=== PATIENT | male | born 1995 | race Caucasian/White ===

== ENCOUNTER 2016-06-29 20:53 | Emergency (ER) | payer SELFPAY ==
[2016-06-29 21:43] LABS: % EOSINOPHILS 1.7 % (0.0-5.0); % LYMPHOCYTES 29.5 % (20.0-50.0); % NEUTROPHILS 63.8 % (40.0-80.0); HEMATOCRIT 47.2 % (39.0-49.0); HEMOGLOBIN 16.1 gm/dL (13.2-17.3); MEAN CELL VOLUME 85.6 fl (80-99); MEAN CORPUSCULAR HEMOGLOBIN 29.1 pg (26.0-30.0); MEAN PLATELET VOLUME 8.2 fl; NEUTROPHILE ABSOLUTE 5.4 Th/cmm (1.8-8.0); PLATELET COUNT 298 Th/cmm (150-400); RED BLOOD COUNT 5.51 Mil/cmm (4.30-5.70); RED CELL DISTRIBUTION WIDTH 12.5 % (11.5-20.0); WHITE BLOOD COUNT 8.4 Th/cmm (4.8-10.8)
[2016-06-29 21:49] LABS: INR 0.98 (0.5-1.4); PROTHROMBIN TIME (TEST) 9.7 SECONDS (9.5-11.5)
[2016-06-29 21:53] LABS: ALB/GLOB RATIO 1.5 (1.0-1.8); ALKALINE PHOSPHATASE 45 U/L (34-104); BILIRUBIN,TOTAL 0.3 mg/dL (0.3-1.0); BUN - UREA NITROGEN 10 mg/dL (7-25); CALCIUM SERUM 9.4 mg/dL (8.6-10.3); CARBON DIOXIDE 24.3 mEq/L (21.0-31.0); CHLORIDE 109 mEq/L (98-107); GLUCOSE 131 mg/dL (70-105); POTASSIUM SERUM 3.3 mEq/L (3.5-5.1); SGOT 25 U/L (13-39); SGPT/ALT 21 U/L (7-52); SODIUM SERUM 141 mEq/L (136-145)
--- NOTE | 2016-06-29 22:31 | ED Physician Chart ---
Chief Complaint/HPI - Patient Information Date Seen:: 06/29/16 Time Seen:: 21:06 Chief Complaint:: alcohol intoxication History of Present Illness:: THIS IS A 20 YO MALE BIB EMS STATING THAT HE WAS FOUND DOWN AND SMELLING LIKE ALCOHOL AND INCOHERENT. HE IS ORIENTED TO HIS NAME ONLY. Allergies:: Allergies Allergy/AdvReac Type Severity Reaction Status Date / Time UNOBTN - Unobtainable Allergy Verified 06/29/16 20:56 Vitals:: Vital Signs - 8 hr 06/29/16 06/29/16 20:58 22:15 Temp 97.4 F 97.1 F HR 156 98 RR 20 18 BP 125/65 122/60 O2 Sat % 97 99 Historian:: EMS Review:: Nurse's Note Reviewed Review of Systems - Review of Systems General/Constitutional: Other (THE PATIENT CANNOT GIVE A REVIEW OF SYSTEMS) Skin: No skin lesions, No rash, No bruising Head: No headache, No light-headedness Eyes: No loss of vision, No pain, No diplopia ENT: No earache, No nasal drainage, No sore throat, No tinnitus Neck: No neck pain, No swelling, No thyromegaly, No stiffness, No mass noted Cardio Vascular: No chest pain, No palpitations, No PND, No orthopnea, No edema Pulmonary: No SOB, No cough, No sputum, No wheezing GI: No nausea, No vomiting, No diarrhea, No pain, No melena, No hematochezia, No constipation, No hematemesis G/U: No dysuria, No frequency, No hematuria Musculoskeletal: No bone or joint pain, No back pain, No muscle pain Endocrine: No polyuria, No polydipsia Psychiatric: No prior psych history, No depression, No anxiety, No suicidal ideation Hematopoietic: No bruising, No lymphadenopathy Allergic/Immuno: No urticaria, No angioedema Neurological: No syncope, No focal symptoms, No weakness, No paresthesia, No headache, No seizure, No dizziness, No confusion, No vertigo Past Medical History - Past Medical History Obtainable: Yes (THIS PATIENT IS UNABLE TO GIVE A HISTORY.) Family Medical History - Family Member Mother History Unknown: Yes Labs/Radiology/EKG Results - Lab Results Results: Laboratory Tests 06/29/16 06/29/16 06/29/16 21:25 21:25 21:25 WBC 8.4 RBC 5.51 Hgb 16.1 Hct 47.2 MCV 85.6 MCH 29.1 MCHC Differential 34.0 RDW 12.5 Plt Count 298 MPV 8.2 Neutrophils % 63.8 Lymphocytes % 29.5 Monocytes % 5.0 Eosinophils % 1.7 Basophils % 0.0 PT 9.7 INR 0.98 Sodium 141 Potassium 3.3 L Chloride 109 H Carbon Dioxide 24.3 Anion Gap 11.0 BUN 10 Creatinine 1.0 Est GFR ( Amer) > 60.0 Est GFR (Non-Af Amer) > 60.0 BUN/Creatinine Ratio 10.0 Glucose 131 H Calcium 9.4 Total Bilirubin 0.3 AST 25 ALT 21 Alkaline Phosphatase 45 Troponin I Total Protein 8.1 Albumin 4.8 Globulin 3.3 Albumin/Globulin Ratio 1.5 Ethyl Alcohol 06/29/16 06/29/16 21:25 21:25 WBC RBC Hgb Hct MCV MCH MCHC Differential RDW Plt Count MPV Neutrophils % Lymphocytes % Monocytes % Eosinophils % Basophils % PT INR Sodium Potassium Chloride Carbon Dioxide Anion Gap BUN Creatinine Est GFR ( Amer) Est GFR (Non-Af Amer) BUN/Creatinine Ratio Glucose Calcium Total Bilirubin AST ALT Alkaline Phosphatase Troponin I < 0.01 L Total Protein Albumin Globulin Albumin/Globulin Ratio Ethyl Alcohol 353 H ED Septic Shock - . Is Septic Shock (SBP<90, OR Lactate>4 mmol\L) present?: No - <6hrs of presentation: Vital Signs: Vital Signs - 8 hr 06/29/16 06/29/16 20:58 22:15 Temp 97.4 F 97.1 F HR 156 98 RR 20 18 BP 125/65 122/60 O2 Sat % 97 99 Reassessment (Disposition) - Reassessment Reassessment Condition:: Improved - Diagnosis Diagnosis:: ALCOHOL INTOXICATION - Aftercare/Follow up Instructions Aftercare/Follow-Up Instructions:: Counseled pt regarding lab results/diagnosis & need follow up, Refer to Discharge Instructions, Counseled pt & family regarding lab results/diagnosis & need follow up Notes:: HIS MOTHER AND SISTER PICKED HIM UP TO TAKE HIM HOME. THE FAMILY OF TOLD TO MONITOR HIM CLOSELY AND THAT HE SHOULD NOT DRINK ANY MORE ALCOHOL TONIGHT. - Patient Disposition Discharge/Transfer:: Home Condition at Disposition:: Improved ED Discharge Plan - Patient Disposition Admit/Discharge/Transfer: PT DISCHARGED HOME Condition at Disposition: Improved Instructions: Alcohol Intoxication, [id number]
== END 2016-06-29 22:15 | disposition home or self-care (01) ==
LOC: ER 20:53
DX: F10.129 Alcohol abuse with intoxication, unspecified (principal)
CPT/HCPCS: 36415-UA; 80053-TC; 80320-TC; 84484-TC; 85025-TC; 85610-TC; Z7502